=== PATIENT | female | born 1985 | race Caucasian/White ===

== ENCOUNTER 2018-06-09 14:07 | Emergency (ER) | payer OTHER ==
[~2018-06-09] VITALS: Ht 177.8 cm; Wt 63.6 kg
[~2018-06-09 14:07] MED LIST: [UNRECOGNIZED DRUG - OTHER]
[2018-06-09 14:13] VITALS: TEMP 98.4
[2018-06-09] MEDS ORDERED: AMOXICILLIN 8751 TAB PO (14:30)
[2018-06-09 14:38] VITALS: BP 122/59; PULSE 88
== END 2018-06-09 14:38 | disposition home or self-care (01) ==
LOC: COL.ER 14:07
DX: L03.032 Cellulitis of left toe (principal)